=== PATIENT | male | born 1965 | race Two or more races ===

== ENCOUNTER 2019-06-11 08:52 | Outpatient (CLI) | payer OTHER ==
[~2019-06-11 08:52] MED LIST: CATAFLAM50 MG PO; INDOCIN; KLONOPIN0.125 MG/T; MEDROLPACK PO; ORPH100T PO; ZOLOFT25 MG; [UNRECOGNIZED DRUG - OTHER]
== END 2019-06-11 09:01 | disposition home or self-care (01) ==
LOC: SONOGRAMA 08:52
DX: R13.19 Other dysphagia (principal); E04.1 Nontoxic single thyroid nodule

== ENCOUNTER 2019-09-07 20:13 | Emergency (ER) | payer OTHER ==
[~2019-09-07] VITALS: Ht 162.6 cm; Wt 112.9 kg
[2019-09-07] MEDS ORDERED: SIMVASTATIN5 MG (20:30)
[2019-09-07] MEDS ORDERED: PROTONIX20 MG (20:30)
[2019-09-07] MEDS ORDERED: TAMS0.4C (20:30)
== END 2019-09-07 22:26 | disposition home or self-care (01) ==
LOC: ER 20:13
DX: S80.812A Abrasion, left lower leg, initial encounter (principal); L08.9 Local infection of the skin and subcutaneous tissue, unspecified; W22.8XXA Striking against or struck by other objects, initial encounter; Y93.89 Activity, other specified; Y92.89 Other specified places as the place of occurrence of the external cause; Y99.8 Other external cause status

== ENCOUNTER → 2019-10-29 | Outpatient (CLI) | payer OTHER ==
[~2019-10-29] MED LIST changes: +PROTONIX20 MG; +SIMVASTATIN5 MG; +TAMS0.4C
== END | disposition home or self-care (01) ==
LOC: RAD 08:17
DX: M17.0 Bilateral primary osteoarthritis of knee (principal)

== ENCOUNTER 2020-09-17 12:58 | Emergency (ER) | payer OTHER ==
[~2020-09-17] VITALS: Ht 162.6 cm; Wt 129.3 kg
== END 2020-09-17 14:50 | disposition home or self-care (01) ==
LOC: ER 12:58
DX: R21 Rash and other nonspecific skin eruption (principal); L29.8 Other pruritus; S00.262A Insect bite (nonvenomous) of left eyelid and periocular area, initial encounter; S00.86XA Insect bite (nonvenomous) of other part of head, initial encounter; W57.XXXA Bitten or stung by nonvenomous insect and other nonvenomous arthropods, initial encounter; Y93.89 Activity, other specified; Y92.89 Other specified places as the place of occurrence of the external cause; Y99.8 Other external cause status

== ENCOUNTER → 2021-04-20 07:25 | Outpatient (CLI) | payer OTHER | END | disposition home or self-care (01) | LOC: LAB 07:25 | PROVIDERS: ATTEND Internal Medicine Cardiovascular Disease | DX: I10 Essential (primary) hypertension (principal); E11.9 Type 2 diabetes mellitus without complications; E03.9 Hypothyroidism, unspecified; E78.2 Mixed hyperlipidemia; N40.0 Benign prostatic hyperplasia without lower urinary tract symptoms; E55.9 Vitamin D deficiency, unspecified ==

== ENCOUNTER 2022-01-31 08:15 | Outpatient (CLI) | payer OTHER | END 2022-01-31 08:16 | disposition home or self-care (01) | LOC: LAB 08:15 | PROVIDERS: ATTEND Internal Medicine Gastroenterology | DX: E03.9 Hypothyroidism, unspecified (principal); E78.5 Hyperlipidemia, unspecified; R10.9 Unspecified abdominal pain ==

== ENCOUNTER 2022-02-07 07:39 | Outpatient (CLI) | payer OTHER | END 2022-02-07 07:48 | disposition home or self-care (01) | LOC: SONOGRAMA 07:39 | PROVIDERS: ATTEND Internal Medicine Gastroenterology | DX: R10.9 Unspecified abdominal pain (principal) ==

== ENCOUNTER 2023-06-24 08:13 | Emergency (ER) | payer OTHER ==
[~2023-06-24] VITALS: Ht 162.6 cm; Wt 124.7 kg
[2023-06-24] MEDS ORDERED: PROTONIX20 MG PO (08:25)
[2023-06-24] MEDS ORDERED: VOLTAREN ARTHRI20 GM (08:25)
[2023-06-24] MEDS ORDERED: COZAAR50 MG PO (08:25)
[2023-06-24] MEDS ORDERED: TAMS0.4C PO (08:26)
[2023-06-24] MEDS ORDERED: DICLOFENAC SODI75 MG PO (09:04)
[2023-06-24] MEDS ORDERED: NORFLEX100MG PO (09:04)
== END 2023-06-24 09:51 | disposition home or self-care (01) ==
LOC: ER 08:13
DX: M54.50 Low back pain, unspecified (principal)

== ENCOUNTER 2023-09-20 06:15 | Emergency (ER) | payer OTHER ==
[~2023-09-20] VITALS: Ht 162.6 cm; Wt 117.9 kg
[~2023-09-20 06:15] MED LIST changes: +COZAAR50 MG PO; +DICLOFENAC SODI75 MG PO; +NORFLEX100MG PO; +PROTONIX20 MG PO; +TAMS0.4C PO; +VOLTAREN ARTHRI20 GM
[2023-09-20] MEDS ORDERED: PEPCID AC20 MG (06:28)
[2023-09-20 07:56] LABS: HEMATOCRIT 40.4 % (39.0-48.0); HEMOGLOBIN 13.9 g/dL (13-16.00); MEAN CELL VOLUME 94.9 fL (80.0-100.00); MEAN CORPUSCULAR HEMOGLOBIN 32.7 pg (27.00-32.0); MEAN CORPUSCULAR HGB CONC 34.4 g/dl (32.0-36.0); PLATELET COUNT 235 K/uL (150-450); RED BLOOD COUNT 4.26 M/uL (4.00-6.00); RED CELL DISTRIBUTION WIDTH 13.3 % (11.5-14.5)
== END 2023-09-20 10:08 | disposition home or self-care (01) ==
LOC: ER 06:15
PROVIDERS: General Practice
DX: R50.9 Fever, unspecified (principal); R53.81 Other malaise; Z20.822 Contact with and (suspected) exposure to COVID-19